=== PATIENT | female | born 2000 | race Caucasian/White ===

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

== ENCOUNTER 2021-09-30 19:39 | Emergency (ER) | payer OTHER, SELFPAY ==
[2021-09-30 20:25] VITALS: BP 131/70; PULSE 94; RESP 17; TEMP 37.1; O2SAT 100; BMI 20.6
== END 2021-09-30 20:38 | disposition left against medical advice (07) ==
PROVIDERS: Emergency Provider Emergency Medicine
DX: M25.532 Pain in left wrist (principal)
CPT/HCPCS: 99281